=== PATIENT | male | born 1985 | race Caucasian/White ===

== ENCOUNTER 2018-10-21 10:12 | Emergency (ER) | payer OTHER ==
[~2018-10-21] VITALS: Ht 152.4 cm; Wt 72.6 kg
--- NOTE | 2018-10-21 12:41 | NUR ---
Patient discharged to home in stable conditon. Written and verbal after care instructions given. Patient verbalizes understanding of instructions.
== END 2018-10-21 12:50 | disposition home or self-care (01) ==
LOC: ER 10:12
DX: K04.7 Periapical abscess without sinus (principal); Z88.5 Allergy status to narcotic agent
CPT/HCPCS: A4663

== ENCOUNTER 2019-02-03 12:40 | Emergency (ER) | payer OTHER ==
[~2019-02-03] VITALS: Ht 165.1 cm; Wt 72.6 kg
--- NOTE | 2019-02-03 12:53 | NUR ---
PT IS IN ROOM #1B. DR HARRIS EVALUATED THE PT.
[2019-02-03] MEDS: KETOROLAC TROMETHAMINE 30 MG INJ IM ONE (12:57)
[2019-02-03] MEDS ORDERED: KETOROLAC TROMETHAMINE 30 MG INJ ONE (12:59)
--- NOTE | 2019-02-03 12:59 | NUR ---
PT WAS D/C'd TO HOME. D/C INSTRUCTIONS GIVEN TO THE PT.
[2019-02-03 13:00] VITALS: BP 128/78
== END 2019-02-03 13:01 | disposition home or self-care (01) ==
LOC: ER 12:40
DX: K08.89 Other specified disorders of teeth and supporting structures (principal); Z88.5 Allergy status to narcotic agent
CPT/HCPCS: 96372; 99283; J1885; A4663

== ENCOUNTER 2024-05-30 17:13 | Emergency (ER) | payer MEDICAID ==
[~2024-05-30] VITALS: Ht 165.1 cm; Wt 72.6 kg
[2024-05-30 17:27] VITALS: O2SAT 98
[2024-05-30] MEDS ORDERED: CEPH500C2 PO (17:45)
[2024-05-30] MEDS ORDERED: SULF1TAB48 PO (17:45)
--- NOTE | 2024-05-30 17:53 | NUR ---
Patient discharged to home in stable condition. Written and verbal after care instructions given. Patient verbalizes understanding of instructions. Stressed follow up or return to ER for worsening s/s.
== END 2024-05-30 17:54 | disposition home or self-care (01) ==
LOC: ER 17:19
DX: S51.012A Laceration without foreign body of left elbow, initial encounter (principal); Z79.899 Other long term (current) drug therapy; Z60.2 Problems related to living alone; Z88.5 Allergy status to narcotic agent; W18.39XA Other fall on same level, initial encounter; Y93.89 Activity, other specified; Y92.89 Other specified places as the place of occurrence of the external cause; Y99.8 Other external cause status
CPT/HCPCS: A4606; A4663

== ENCOUNTER 2024-07-05 12:22 | Emergency (ER) | payer MEDICAID ==
[~2024-07-05] VITALS: Ht 165.1 cm; Wt 74.8 kg
[~2024-07-05 12:22] MED LIST: CEPH500C2 PO; SULF1TAB48 PO
[2024-07-05] MEDS ORDERED: MUPI15CR TP (13:27)
[2024-07-05] MEDS ORDERED: CLIN300C12 PO (13:27)
[2024-07-05] MEDS ORDERED: NEOMY/BACITRA/POLYMYXIN B OINT UD PACKET TP ONE (13:47)
[2024-07-05] MEDS ORDERED: CLINDAMYCIN HCL 300 MG CAPSULE ONE (13:47)
[2024-07-05] MEDS: NEOMY/BACITRA/POLYMYXIN B OINT UD PACKET TP ONE (13:49)
[2024-07-05] MEDS: CLINDAMYCIN HCL 150 MG CAPSULE PO ONE (13:49)
[2024-07-05 14:29] VITALS: BP 122/78; O2SAT 99
== END 2024-07-05 14:30 | disposition home or self-care (01) ==
LOC: ER 12:22
DX: L03.116 Cellulitis of left lower limb (principal); F17.200 Nicotine dependence, unspecified, uncomplicated; Z79.899 Other long term (current) drug therapy; Z59.00 Homelessness unspecified; Z88.5 Allergy status to narcotic agent; Z88.7 Allergy status to serum and vaccine
CPT/HCPCS: A4606; A4663

== ENCOUNTER → 2025-04-08 | Emergency (ER) | payer MEDICAID, OTHER ==
[~2025-04-08] MED LIST changes: +CLIN300C12 PO; +IVER3TAB2 PO; +MUPI15CR TP
== END | disposition left against medical advice (07) ==
LOC: ER 15:33
DX: Z53.21 Procedure and treatment not carried out due to patient leaving prior to being seen by health care provider (principal)

== ENCOUNTER 2025-04-14 11:27 | Emergency (ER) | payer OTHER ==
[~2025-04-14] VITALS: Ht 165.1 cm; Wt 81.6 kg
[~2025-04-14 11:27] MED LIST changes: -IVER3TAB2 PO
[2025-04-14 11:37] VITALS: O2SAT 97
[2025-04-14] MEDS ORDERED: IVER3TAB2 PO (11:52)
== END 2025-04-14 11:55 | disposition home or self-care (01) ==
LOC: ER 11:27
DX: B86 Scabies (principal); F17.200 Nicotine dependence, unspecified, uncomplicated; Z59.00 Homelessness unspecified; Z88.5 Allergy status to narcotic agent; Z88.7 Allergy status to serum and vaccine; Z87.39 Personal history of other diseases of the musculoskeletal system and connective tissue
CPT/HCPCS: A4606; A4663

== ENCOUNTER 2025-04-19 07:20 | Emergency (ER) | payer OTHER ==
[~2025-04-19 07:20] MED LIST changes: +IVER3TAB2 PO
== END 2025-04-19 07:49 | disposition left against medical advice (07) ==
LOC: ER 07:20
DX: L24.9 Irritant contact dermatitis, unspecified cause (principal); Z53.21 Procedure and treatment not carried out due to patient leaving prior to being seen by health care provider